=== PATIENT | male | born 1950 | race Caucasian/White ===

== ENCOUNTER 2016-10-13 12:02 | Inpatient (IN) | payer MEDICARE, BC ==
[2016-10-13] VITALS (400 sets, daily range): BP systolic 104–113; BP diastolic 71–75; PULSE 94–104; TEMP 100.4–101.8; O2SAT 84–100
[~2016-10-13] VITALS: Ht 182.9 cm; Wt 115.8 kg
[~2016-10-13 12:02] MED LIST: CEPHALEXIN500 M1 PO; FLOMAX 0.40.4 MG/CAP PO
[2016-10-13] MEDS ORDERED: NORTHERA300 (12:52)
[2016-10-13] MEDS ORDERED: B-121000 MCG PO (12:56)
[2016-10-13] MEDS ORDERED: AMBIEN 10MG10 MG PO (12:56)
[2016-10-13] MEDS ORDERED: TYLENOL 500MG500 MG PO (12:57)
[2016-10-13] MEDS ORDERED: ASPIRIN E.C. 8181 MG PO (12:57)
[2016-10-13] MEDS ORDERED: STOOL SOFTENER100 M2 PO (12:57)
[2016-10-13] MEDS ORDERED: VITAMIN C500 MG PO (12:57)
[2016-10-13] MEDS ORDERED: CHLOR-TABS4 MG PO (12:58)
[2016-10-13 13:05] LABS: BASO # 0.1 (0.0-0.2); BASO % 0.3 % (0.0-2.0); EOS % 0.1 % (0-4.0); GRAN # 17.6 (1.4-6.5); GRAN % 88.9 % (42.2-75.2); HEMOGLOBIN 12.4 g/dl (13.5-18.0); LYMPH # 0.7 (1.2-3.4); LYMPH % 3.6 % (20.0-51.0); MEAN CELL VOLUME 89 fl (80.0-100.0); MEAN CORPUSCULAR HEMOGLOBIN 30 pg (27.0-31.0); MEAN CORPUSCULAR HGB CONC 34 g/dl (33.0-37.0); MEAN PLATELET VOLUME 12.4 fl (7.4-10.4); MONO # 1.3 (0.1-0.6); MONO % 6.6 % (1.7-9.3); PLATELET COUNT 149 K/mm3 (130-400); REDCELL DISTRIBUTION WIDTH-CV 12.8 % (11.5-14.5); WHITE BLOOD COUNT 19.8 K/mm3 (4.8-10.8)
[2016-10-13 13:06] LABS: HEMATOCRIT 36.6 % (42.0-52.0)
[2016-10-13 13:18] LABS: PH 6 (5-8); SQUAMOUS EPITHELIAL None Seen /hpf; URINE APPEARANCE Hazy; URINE BACTERIA Rare /hpf; URINE BILIRUBIN Negative (NEGATIVE); URINE BLOOD Negative (NEGATIVE); URINE COLOR Yellow; URINE GLUCOSE Negative (NEGATIVE); URINE KETONE Trace (NEGATIVE); URINE UROBILINOGEN >=4.0 mg/dL (NEGATIVE); URINE WBC 20-50 /hpf
[2016-10-13 13:18] LABS: ADJUSTED CALCIUM 8.9 mg/dL (8.4-10.2); ALBUMIN 4.1 gm/dL (3.5-5.0); BILIRUBIN,TOTAL 1.1 mg/dL (0.0-1.0); CREATININE, serum 1.48 mg/dL (0.66-1.25); POTASSIUM 4.1 mmol/L (3.4-5.0); TOTAL PROTEIN 7.7 gm/dL (6.4-8.2)
[2016-10-13 15:38] LABS: PROLACTIN 10.4 ng/mL (3.7-17.9)
[2016-10-13] MEDS ORDERED: TYLENOL PM EXTR1 TA1 PO (16:02)
[2016-10-14] VITALS (613 sets, daily range): BP systolic 116–132; BP diastolic 73–87; PULSE 83–130; TEMP 98–100.4; O2SAT 78–100
[2016-10-14 06:14] LABS: MEAN CELL VOLUME 93 fl (80.0-100.0); MEAN CORPUSCULAR HGB CONC 33 g/dl (33.0-37.0); MEAN PLATELET VOLUME 12.8 fl (7.4-10.4); PLATELET COUNT 136 K/mm3 (130-400); REDCELL DISTRIBUTION WIDTH-CV 13.3 % (11.5-14.5); WHITE BLOOD COUNT 17.1 K/mm3 (4.8-10.8)
[2016-10-14 06:23] LABS: ADD PATHOLOGY DIFF REVIEW NO; HEMATOCRIT 33.3 % (42.0-52.0); MEAN CORPUSCULAR HEMOGLOBIN 31 pg (27.0-31.0)
[2016-10-14 06:26] LABS: CALCIUM 8.1 mg/dL (8.4-10.2); CREATININE, serum 1.63 mg/dL (0.66-1.25); POTASSIUM 3.9 mmol/L (3.4-5.0)
[2016-10-14 08:05] LABS: BAND 4 % (0-10); NEUTROPHILS 87 % (42.0-75.2); TOTAL CELLS COUNTED 100
[2016-10-15] VITALS (366 sets, daily range): BP systolic 113–148; BP diastolic 81–113; PULSE 82–93; TEMP 97.2–98.9; O2SAT 70–100
[2016-10-15 06:03] LABS: BASO % 0.3 % (0.0-2.0); EOS # 0.1 (0.0-0.7); EOS % 0.4 % (0-4.0); GRAN # 10.9 (1.4-6.5); GRAN % 80.3 % (42.2-75.2); LYMPH # 1.1 (1.2-3.4); LYMPH % 7.9 % (20.0-51.0); MEAN CELL VOLUME 94 fl (80.0-100.0); MEAN CORPUSCULAR HGB CONC 32 g/dl (33.0-37.0); MEAN PLATELET VOLUME 13.3 fl (7.4-10.4); MONO # 1.5 (0.1-0.6); MONO % 10.7 % (1.7-9.3); PLATELET COUNT 115 K/mm3 (130-400); RED BLOOD COUNT 3.42 M/mm3 (4.20-5.60); REDCELL DISTRIBUTION WIDTH-CV 13.5 % (11.5-14.5); WHITE BLOOD COUNT 13.6 K/mm3 (4.8-10.8)
[2016-10-15 06:05] LABS: CALCIUM 8.5 mg/dL (8.4-10.2); CREATININE, serum 1.42 mg/dL (0.66-1.25); POTASSIUM 3.8 mmol/L (3.4-5.0)
[2016-10-15 06:17] LABS: HEMATOCRIT 32.1 % (42.0-52.0); HEMOGLOBIN 10.3 g/dl (13.5-18.0); MEAN CORPUSCULAR HEMOGLOBIN 30 pg (27.0-31.0)
[2016-10-16] VITALS (7 sets, daily range): BP systolic 119–154; BP diastolic 72–102; PULSE 79–93; TEMP 97.4–98.7
[2016-10-16 08:24] LABS: BASO % 0.4 % (0.0-2.0); EOS # 0.2 (0.0-0.7); EOS % 2.6 % (0-4.0); GRAN # 5.9 (1.4-6.5); GRAN % 74.1 % (42.2-75.2); LYMPH # 0.9 (1.2-3.4); LYMPH % 11.3 % (20.0-51.0); MEAN CELL VOLUME 93 fl (80.0-100.0); MEAN CORPUSCULAR HGB CONC 32 g/dl (33.0-37.0); MEAN PLATELET VOLUME 13.1 fl (7.4-10.4); MONO # 0.9 (0.1-0.6); PLATELET COUNT 114 K/mm3 (130-400); RED BLOOD COUNT 3.39 M/mm3 (4.20-5.60); REDCELL DISTRIBUTION WIDTH-CV 13.1 % (11.5-14.5)
[2016-10-16 08:25] LABS: HEMATOCRIT 31.5 % (42.0-52.0); HEMOGLOBIN 10.2 g/dl (13.5-18.0); MEAN CORPUSCULAR HEMOGLOBIN 30 pg (27.0-31.0)
[2016-10-16 09:03] LABS: CALCIUM 8.9 mg/dL (8.4-10.2); CREATININE, serum 1.21 mg/dL (0.66-1.25); POTASSIUM 3.8 mmol/L (3.4-5.0)
[2016-10-17 03:43] VITALS: BP 174/90; PULSE 77; TEMP 98.9
[2016-10-17 07:51] VITALS: BP 157/103; PULSE 80; TEMP 98.2
[2016-10-17 08:35] LABS: BASO % 0.5 % (0.0-2.0); EOS # 0.3 (0.0-0.7); GRAN # 4.6 (1.4-6.5); GRAN % 68.3 % (42.2-75.2); LYMPH # 0.9 (1.2-3.4); LYMPH % 13.2 % (20.0-51.0); MEAN CELL VOLUME 92 fl (80.0-100.0); MEAN CORPUSCULAR HGB CONC 32 g/dl (33.0-37.0); MEAN PLATELET VOLUME 13.4 fl (7.4-10.4); MONO # 0.8 (0.1-0.6); MONO % 12.5 % (1.7-9.3); PLATELET COUNT 133 K/mm3 (130-400); RED BLOOD COUNT 3.52 M/mm3 (4.20-5.60); REDCELL DISTRIBUTION WIDTH-CV 12.9 % (11.5-14.5); WHITE BLOOD COUNT 6.7 K/mm3 (4.8-10.8)
[2016-10-17 08:40] LABS: HEMATOCRIT 32.5 % (42.0-52.0); HEMOGLOBIN 10.5 g/dl (13.5-18.0); MEAN CORPUSCULAR HEMOGLOBIN 30 pg (27.0-31.0)
[2016-10-17 08:49] LABS: CREATININE, serum 1.12 mg/dL (0.66-1.25); POTASSIUM 3.7 mmol/L (3.4-5.0)
[2016-10-17] MEDS ORDERED: LIPITOR20 MG PO (11:40)
[2016-10-17] MEDS ORDERED: INVANZ INJ1 G/VIAL IV (11:41)
[2016-10-17 12:39] VITALS: BP 156/105; PULSE 79; TEMP 97.4
== END 2016-10-17 15:14 | disposition home or self-care (01) | DRG 872 ==
LOC: COL.ER 12:02 → IMCU 14:57 → MEDICAL 10-15 15:50
PROVIDERS: Emergency Medicine; Family Medicine; Internal Medicine
PROC: 02HV33Z Insertion of Infusion Device into Superior Vena Cava, Percutaneous Approach (ICD-10-PCS; principal; 2016-10-17)
DX: A41.51 Sepsis due to Escherichia coli [E. coli] (principal); N39.0 Urinary tract infection, site not specified; N17.9 Acute kidney failure, unspecified; B96.20 Unspecified Escherichia coli [E. coli] as the cause of diseases classified elsewhere; G20 Parkinson's disease; D69.6 Thrombocytopenia, unspecified; I16.0 Hypertensive urgency
CPT/HCPCS: OP; 99223-AI; 99232-AI; 99233-AI; 99239; C1751; J0696; J1644; J1956; J2185; J7030; J7040

== ENCOUNTER → 2016-10-24 | Outpatient (REF) ==
[~2016-10-24] MED LIST changes: +AMBIEN 10MG10 MG PO; +ASPIRIN E.C. 8181 MG PO; +B-121000 MCG PO; +CHLOR-TABS4 MG PO; +INVANZ INJ1 G/VIAL IV; +LIPITOR20 MG PO; +NORTHERA300; +STOOL SOFTENER100 M2 PO; +TYLENOL 500MG500 MG PO; +TYLENOL PM EXTR1 TA1 PO; +VITAMIN C500 MG PO
== END ==
LOC: ZAIV 06:00
DX: Z09 Encounter for follow-up examination after completed treatment for conditions other than malignant neoplasm (principal)

== ENCOUNTER → 2016-11-09 | Outpatient (CLI) | payer MEDICARE, BC ==
[2016-11-09 16:38] LABS: PH 6 (5-8); SQUAMOUS EPITHELIAL None Seen /hpf; URINE APPEARANCE Clear; URINE BACTERIA None Seen /hpf; URINE BILIRUBIN Negative (NEGATIVE); URINE BLOOD Negative (NEGATIVE); URINE COLOR Yellow; URINE GLUCOSE 1+ (NEGATIVE); URINE KETONE Negative (NEGATIVE); URINE RBC 0-2 /hpf; URINE UROBILINOGEN Negative (NEGATIVE)
== END ==
LOC: COL.LAB 15:33
PROVIDERS: Internal Medicine Infectious Disease
DX: N39.0 Urinary tract infection, site not specified (principal)

== ENCOUNTER → 2017-04-01 | Outpatient (CLI) | payer MEDICARE, BC | LOC: MHCPAIN 11:24 | DX: G89.29 Other chronic pain (principal); M47.812 Spondylosis without myelopathy or radiculopathy, cervical region; G20 Parkinson's disease; Z79.82 Long term (current) use of aspirin | CPT/HCPCS: G0463 ==